=== PATIENT | female | born 1960 | race African-American/Black ===

== ENCOUNTER 2017-07-24 05:05 | Day surgery (SDC) | payer BC, OTHER ==
[2017-06-28 12:37] VITALS: BMI 26.2
[2017-07-24 08:05] VITALS: TEMP 98.5
--- NOTE | 2017-07-24 08:14 | HP ---
Satellite [facility] - Chief Complaint Chief Complaint: right CTS History of Present Illness: right CTS History Source: Patient Limitations to Obtaining History: No Limitations - Past Medical History Allergies/Adverse Reactions: Allergies Allergy/AdvReac Type Severity Reaction Status Date / Time latex Allergy Mild Difficulty Verified 12/15/15 07:47 Breathing canola oil AdvReac Verified 12/15/15 07:47 - Current Medications Current Medications: Home Medications Medication Instructions Recorded Famotidine 20 mg PO PRN PRN 12/13/15 Loratadine [Claritin -] 10 mg PO PRN PRN 12/13/15 Multivitamins [Tab-A-Vit -] 1 tab PO DAILY 12/13/15 Hydrochlorothiazide [Hctz -] 12.5 mg PO DAILY 06/28/17 Satellite Physical Exam - Physical Examination Vital Signs: Vital Signs Period Temp Pulse Resp BP Sys/[place] Pulse Ox Last 24 Hr 98.5 F 70 20 132/73 100 General Appearance: Well Nourished ENT: Clear Lung: Clear to auscultation Heart: Regular rate & rhythm Breasts: Soft Abdomen: Soft Extremities: No edema Satellite Impression/Plan - Impression/Plan Impression: right CTS Operative Procedure: right CTR Date to be Performed: 07/24/17
[2017-07-24] MEDS ORDERED: ONDANSETRON 4 MG/2 ML VIAL IVPUSH PRN (08:34)
[2017-07-24] MEDS ORDERED: oxyCODONE HCL 5 MG TABLET PO PRN (08:34)
[2017-07-24] MEDS ORDERED: LACTATED RINGERS SOLUTION 1,000 ML IV SCH (08:45)
[2017-07-24] MEDS ORDERED: BUPIVACAINE HCL/PF 0.5% (5MG/ML) 10 ML VIAL ONE (09:35)
[2017-07-24] MEDS ORDERED: LIDOCAINE HCL 1%, 10 MG/ML (20ML VIAL) ONE (09:35)
[2017-07-24] MEDS ORDERED: ceFAZolin SODIUM 1 GM VIAL IVPB ONE (10:01)
[2017-07-24] MEDS ORDERED: LIDOCAINE HCL 1%, 10 MG/ML (20ML VIAL) INF ONE (10:12)
[2017-07-24] MEDS ORDERED: BUPIVACAINE HCL/PF 0.5% (5MG/ML) 10 ML VIAL IJ ONE (10:12)
--- NOTE | 2017-07-24 10:37 | OP ---
Operative Note - Note: Operative Date: 07/24/17 Pre-Operative Diagnosis: right CTS Operation: right CTR Post-Operative Diagnosis: Same as Pre-op Surgeon: Isaak Jackson Bilingual Operator: Reese Rodriguez Anesthesiologist/WET SUIT GLUER: Arias Rodriguez Anesthesia: Local, MAC Specimens Removed: tenosynovium Estimated Blood Loss (mls): 0 Drains, Volume Out (mls): 0 Blood Volume Replaced (mls): 0 Fluid Volume Replaced (mls): 500 Operative Report Dictated: Yes
--- NOTE | 2017-07-24 11:31 | SPEC ---
DATE OF OPERATION: 07/24/2017 PREOPERATIVE DIAGNOSIS: Right carpal tunnel syndrome. POSTOPERATIVE DIAGNOSIS: Right carpal tunnel syndrome. PROCEDURE: Right carpal tunnel release and tenosynovectomy. SURGEON: Isaak Jackson MD CURRICULUM COORDINATOR: Reese Rodriguez MD ENGINEERING TECH: Arias Rodriguez CRNA ANESTHESIA: MAC anesthesia with local injection of 12 mL of 0.5% Marcaine and 1% lidocaine mix. DRAINS: None. COMPLICATIONS: None. SPECIMEN: Tenosynovium, right wrist. BLOOD LOSS: None. BLOOD GIVEN: None. FLUID REPLACEMENT: 500 mL. The patient is a 57-year-old female with the preoperative diagnosis of severe right carpal tunnel syndrome. After understanding the potential risks, complications, alternatives and benefits of surgery versus nonsurgical treatment, the patient elected to undergo this procedure. She understands she may not get complete relief of her symptoms, including the possible continuation of the numbness. DESCRIPTION OF PROCEDURE: The patient was brought to the operating room, peripheral IV placed and intravenous sedation was given. One gram of intravenous Ancef was given. MAC anesthesia was induced. A tourniquet was applied to the right upper arm and the right upper extremity was prepped and draped in sterile fashion. The entire case was done under 3.8 loupe magnification. A marking pen was utilized to cassi out a longitudinal incision in an already existing skin crease. Twenty mL of 0.5% Marcaine mixed with 1% lidocaine was injected in and around the surgical incision. The right upper extremity was elevated, exsanguinated with an Esmarch bandage and the tourniquet inflated to 250 mmHg. A No. 15 scalpel blade was utilized to cut down through the skin. Subcutaneous hemostasis was achieved with the bipolar cautery. Dissection was done through the superficial palmar fascia. Self-retaining retractors were placed into the wound. Under direct visualization, the transverse carpal ligament was transected with a No. 15 scalpel blade, exposing the median nerve and the contents of the carpal tunnel. The distal and proximal extents of the release were completed with a Littler scissor and checked with irrigation and my small finger. They were seen to be complete. Limited dissection was done on the radial side of the median nerve and more extensive dissection was done on the ulnar side of the median nerve. The patients nerve was seen to be quite compressed by epineurium and therefore a limited epineurotomy was performed. A Ragnell retractor was used to gently retract the median nerve in a radial direction. The patient had a lot of tenosynovitis and therefore a tenosynovectomy was performed off all 9 flexor tendons. This was passed off the field as tenosynovium, right wrist. The floor of the carpal tunnel was checked. There were no abnormal masses or ganglion cysts. The area was copiously irrigated and washed out and closure begun. Undyed 4-0 Vicryl was used to close the deep dermal layer. Final skin reapproximation was done with horizontal mattress 4-0 nylon sutures. The area was then washed and dried, covered with Xeroform, 4 x 4's, fluffs between the fingers, Webril and a 4-inch plaster roll was utilized to make a volar splint, which was then wrapped with Mohini and Coban. The tourniquet was taken down after a total tourniquet time of 20 minutes. There were no complications during the case. The patient tolerated the procedure well and was brought to the ambulatory recovery room in stable condition. Georges [id number]
[2017-07-24 12:33] VITALS: BP 129/70; PULSE 70
--- NOTE | 2017-07-25 14:08 | PATH ---
Surgical Pathology Report Patient Name: RADHA JUAREZ Med. Rec. #: [id number] /Age/Gender: 1960 (Age: 57) / F Account: [id number] Location: [facility] SURGICAL Taken: 07/24/2017 Received: 07/24/2017 Reported: 07/25/2017 Physicians: Reese Rodriguez M.D. Specimen(s) Received TENOSYNOVIUM RIGHT HAND Clinical History Carpal tunnel syndrome right hand Final Diagnosis SOFT TISSUE, RIGHT HAND, CARPAL TUNNEL RELEASE: TENOSYNOVIUM WITH NO PATHOLOGIC CHANGES. Electronically Signed Fredo Crocker M.D. Gross Description Received in formalin labelled "tenosynovium right hand" is a 2 cm in greatest dimension aggregate of hickman tissue fragments. Totally submitted in one cassette. [facility]/07/24/2017 [facility]/07/24/2017
== END 2017-07-24 12:36 | disposition home or self-care (01) ==
LOC: JASU-SURG 05:05
PROVIDERS: ATTEND Orthopaedic Surgery
PROC: 01N50ZZ Release Median Nerve, Open Approach (ICD-10-PCS; principal; 2017-07-24 09:00)
DX: G56.01 Carpal tunnel syndrome, right upper limb (principal)
CPT/HCPCS: 88304-TC

== ENCOUNTER 2020-11-15 20:10 | Emergency (ER) | payer BC, OTHER ==
[2020-11-15 20:37] VITALS: BP 164/79; PULSE 73; TEMP 98; BMI 26.2
[2020-11-15 23:03] LABS: BASO % 1.5 % (0-2.0); EOS % 3.9 % (0-4.5); HEMATOCRIT 40.2 % (32.4-45.2); HEMOGLOBIN 13.2 GM/dL (10.7-15.3); LYMPH % 32.7 % (8-40); MCH 26.6 pg (25.7-33.7); MCHC 32.9 g/dl (32.0-36.0); MEAN PLT VOLUME 7.6 fl (7.5-11.1); MONO % 8.6 % (3.8-10.2); NEUT % 53.3 % (42.8-82.8); PLATELET COUNT 273 10^3/uL (134-434); RBC 4.96 M/mm3 (3.60-5.2); RDW 13.5 % (11.6-15.6); WHITE BLOOD COUNT 5.2 K/mm3 (4.0-10.0)
[2020-11-15 23:24] LABS: CHLORIDE 102 mmol/L (98-107); SODIUM 140 mmol/L (136-145)
[2020-11-15 23:27] LABS: ALBUMIN 4.1 g/dl (3.4-5.0); ANION GAP 5 MMOL/L (8-16); BLOOD UREA NITROGEN 10.8 mg/dL (7-18); CALCIUM 9.8 mg/dL (8.5-10.1); CO2 33 mmol/L (21-32); GLUCOSE,RANDOM 91 mg/dL (74-106)
[2020-11-15 23:30] LABS: CREATININE 0.8 mg/dL (0.55-1.3); SGOT/AST 20 U/L (15-37); SGPT/ALT 23 U/L (13-61)
[2020-11-15 23:33] LABS: BILIRUBIN,TOTAL 0.2 mg/dL (0.2-1); TOT PROT 8.3 g/dl (6.4-8.2)
[2020-11-15 23:34] LABS: ALK PHOS 50 U/L (45-117)
== END 2020-11-16 01:52 | disposition home or self-care (01) ==
LOC: JER 20:10
DX: R42 Dizziness and giddiness (principal); R07.9 Chest pain, unspecified
CPT/HCPCS: 36415; 70450-TC; 80053; 82550; 84484; 85025; 93005; 93010; 99285-25

== ENCOUNTER 2022-05-21 04:16 | Day surgery (SDC) | payer BC, OTHER ==
[2022-05-15 14:26] VITALS: BMI 27.3
[2022-05-21] MEDS ORDERED: PROPOFOL 20 ML ONE (09:40)
[2022-05-21] MEDS ORDERED: DEXAMETHASONE SOD PHOSPHATE 4 MG/1 ML VIAL ONE (09:40)
[2022-05-21] MEDS ORDERED: KETOROLAC TROMETHAMINE 30 MG/1 ML VIAL ONE (09:40)
[2022-05-21] MEDS ORDERED: ONDANSETRON 4 MG/2 ML VIAL ONE (09:40)
[2022-05-21] MEDS ORDERED: BUPIVACAINE HCL/PF 0.5% (5MG/ML) 10 ML VIAL ONE (10:16)
[2022-05-21] MEDS ORDERED: ACETAMINOPHEN INJECTION 100 ML IVPB ONE (10:16)
[2022-05-21] MEDS ORDERED: DEXAMETHASONE SOD PHOSPHATE 10 MG/1 ML VIAL ONE (10:16)
[2022-05-21] MEDS ORDERED: MIDAZOLAM HCL 2 MG/2 ML SINGLE DOSE VIAL ONE (10:20)
[2022-05-21] MEDS ORDERED: ceFAZolin SODIUM 1 GM VIAL IVPB ONE (11:00)
[2022-05-21] MEDS ORDERED: oxyCODONE HCL 5 MG TABLET PO PRN (12:11)
[2022-05-21] MEDS ORDERED: ACETAMINOPHEN 325 MG TABLET (FP) PO PRN (12:11)
[2022-05-21] MEDS ORDERED: ONDANSETRON 4 MG/2 ML VIAL IVPUSH PRN (12:11)
[2022-05-21] MEDS ORDERED: LACTATED RINGERS SOLUTION 1,000 ML IV SCH (12:15)
[2022-05-21 14:33] VITALS: BP 137/57; PULSE 78; RESP 18; TEMP 97
== END 2022-05-21 14:34 | disposition home or self-care (01) ==
LOC: JASU-SURG 04:16
PROVIDERS: ATTEND Orthopaedic Surgery
PROC: 0LS34ZZ Reposition Right Upper Arm Tendon, Percutaneous Endoscopic Approach (ICD-10-PCS; 2022-05-21)
PROC: 0RHJ44Z Insertion of Internal Fixation Device into Right Shoulder Joint, Percutaneous Endoscopic Approach (ICD-10-PCS; 2022-05-21)
PROC: 0RNJ4ZZ Release Right Shoulder Joint, Percutaneous Endoscopic Approach (ICD-10-PCS; principal; 2022-05-21 09:30)
DX: M75.121 Complete rotator cuff tear or rupture of right shoulder, not specified as traumatic (principal); M75.41 Impingement syndrome of right shoulder; S46.121A Laceration of muscle, fascia and tendon of long head of biceps, right arm, initial encounter; X58.XXXA Exposure to other specified factors, initial encounter; Y92.9 Unspecified place or not applicable; Y93.9 Activity, unspecified
CPT/HCPCS: 29826; 29827; 29828; C1713; 94760; J1100

== ENCOUNTER 2023-07-06 19:21 | Emergency (ER) | payer BC, OTHER ==
[2023-07-06 19:27] VITALS: BP 164/74; PULSE 98; RESP 19; TEMP 98.1; BMI 26.4
[2023-07-06] MEDS ORDERED: FLUORESCEIN NA 1 EA STRIP ONE (21:12)
[2023-07-06] MEDS ORDERED: TETRACAINE 0.5% OPHTH SOLN 2 ML BOTTLE ONE (21:12)
[2023-07-06] MEDS: FLUORESCEIN NA 1 EA STRIP OU ONE (21:13)
[2023-07-06] MEDS: TETRACAINE 0.5% HCL 0.6ML DROPPER.BOTTLE OU ONE (21:13)
== END 2023-07-06 22:05 | disposition home or self-care (01) ==
LOC: JER 19:21 → JERFT 19:21
DX: H57.89 Other specified disorders of eye and adnexa (principal); Z77.098 Contact with and (suspected) exposure to other hazardous, chiefly nonmedicinal, chemicals
CPT/HCPCS: 99283-25

== ENCOUNTER 2024-05-03 12:17 | Emergency (ER) | payer BC, OTHER ==
[2024-05-03 12:23] VITALS: BP 160/79; PULSE 81; RESP 18; TEMP 97.5; BMI 25.4
[2024-05-03 13:57] LABS: BASO % 0.5 % (0-2.0); EOS % 1.2 % (0-4.5); HEMATOCRIT 42.3 % (32.4-45.2); HEMOGLOBIN 13.7 GM/dL (10.7-15.3); LYMPH % 23.1 % (8-40); MCH 27.1 pg (25.7-33.7); MCHC 32.3 g/dl (32.0-36.0); MEAN PLT VOLUME 8.4 fl (7.5-11.1); MONO % 9.4 % (3.8-10.2); NEUT % 65.8 % (42.8-82.8); RBC 5.04 M/mm3 (3.60-5.2); RDW 13.6 % (11.6-15.6)
[2024-05-03 13:59] LABS: WHITE BLOOD COUNT 6.7 K/mm3 (4.0-10.0)
[2024-05-03 14:17] LABS: POTASSIUM 4.7 mmol/L (3.5-5.1)
[2024-05-03 14:23] LABS: ALBUMIN 3.8 g/dl (3.4-5.0); BILIRUBIN,TOTAL 0.3 mg/dL (0.2-1); BLOOD UREA NITROGEN 16.1 mg/dL (7-18); CREATININE 0.9 mg/dL (0.55-1.3)
[2024-05-03 14:38] LABS: PLATELET COUNT 256 10^3/uL (134-434)
== END 2024-05-03 15:56 | disposition home or self-care (01) ==
LOC: JER 12:17
DX: R07.89 Other chest pain (principal)
CPT/HCPCS: 36415; 71045-TC-FY; 80053; 84484; 85025; 93005; 93010; 99285-25